=== PATIENT | female | born 1980 | race Caucasian/White ===

== ENCOUNTER 2020-10-01 13:39 | Emergency (ER) | payer SELFPAY ==
[~2020-10-01] VITALS: Ht 157.5 cm; Wt 40.8 kg
[2020-10-01 13:39] VITALS: BP 100/46
--- NOTE | 2020-10-01 13:50 | NUR ---
PATIENT BIB [employer]. PATIENT EXAMINED BY DR. KWOK. PATIENT MEDICALLY CLEARED AND RELEASED IN CUSTODY IN STABLE CONDITION. ORIGINAL PRE-BOOK FORM GIVEN TO OFFICER DANA. DISCHARGE INSTRUCTIONS PROVIDED.
== END 2020-10-01 13:50 ==
LOC: MED 13:39
DX: R41.9 Unspecified symptoms and signs involving cognitive functions and awareness (principal); F32.9 Major depressive disorder, single episode, unspecified; Z02.89 Encounter for other administrative examinations
CPT/HCPCS: 99283

== ENCOUNTER 2020-11-21 11:05 | Emergency (ER) | payer MEDICAID ==
[~2020-11-21] VITALS: Ht 162.6 cm; Wt 41.7 kg
--- NOTE | 2020-11-21 11:08 | NUR ---
PT TAKEN TO C BY KRISTIN NOVOA.
--- NOTE | 2020-11-21 11:15 | NUR ---
PT REFUSING VITALS, DR. MUSE MADE AWARE. NO FURTHER NURSING INTERVENTIONS TO BE DONE. PER KRISTIN NOVOA REQUEST TO TAKE PT OF IN PATROL CAR DUE TO BEHAVIOR.
--- NOTE | 2020-11-21 11:26 | NUR ---
NO NURSING INTERVENTIONS NEEDED, NO COMPLETE ASSESSMENT DONE.
--- NOTE | 2020-11-21 11:37 | NUR ---
PATIENT BIB [employer]. PATIENT EXAMINED BY DR. MUSE. PATIENT MEDICALLY CLEARED AND RELEASED IN CUSTODY IN STABLE CONDITION. ORIGINAL PRE-BOOK FORM GIVEN TO OFFICER FELI.
== END 2020-11-21 11:35 ==
LOC: MED 11:05
DX: S00.511A Abrasion of lip, initial encounter (principal); Z02.89 Encounter for other administrative examinations; W19.XXXA Unspecified fall, initial encounter; Y93.89 Activity, other specified; Y92.89 Other specified places as the place of occurrence of the external cause; Y99.8 Other external cause status
CPT/HCPCS: 99283